=== PATIENT | male | born 1990 | race Caucasian/White ===

== ENCOUNTER 2017-03-20 21:02 | Emergency (ER) | END 2017-03-21 14:49 | disposition home or self-care (01) ==

== ENCOUNTER 2017-04-18 11:55 | Emergency (ER) | END 2017-04-18 17:30 | disposition home or self-care (01) ==

== ENCOUNTER 2017-05-01 22:33 | Inpatient (IN) | END 2017-05-05 17:30 | disposition home or self-care (01) | DRG 711 ==

== ENCOUNTER 2017-06-04 16:43 | Emergency (ER) | END 2017-06-04 20:11 | disposition home or self-care (01) ==

== ENCOUNTER 2017-06-18 00:07 | Emergency (ER) | END 2017-06-18 04:32 | disposition home or self-care (01) ==

== ENCOUNTER 2018-05-26 10:06 | Emergency (ER) | payer BC ==
[~2018-05-26] VITALS: Ht 182.9 cm; Wt 87.5 kg
[~2018-05-26 10:06] MED LIST: CEPH250S33 PO; HYDR-3980 PO; HYDR-4011 PO; IBUP-1542 PO; METO10TA92 PO
[2018-05-26 10:40] VITALS: BP 145/80; PULSE 78; RESP 18; Ht 182.9 cm; Wt 87.5 kg
[2018-05-26] MEDS ORDERED: ACETAMINOPHEN 325 MG TAB PO ONE (12:00)
[2018-05-26] MEDS ORDERED: AZIT250T PO (12:50)
[2018-05-26] MEDS ORDERED: IBUP-1542 PO (12:50)
--- NOTE | 2018-05-26 12:53 | ERD ---
ER Documentation Chief Complaint Chief Complaint cold symptoms x 4 days HPI 27-year-old male presents with cough congestion fever for last 4 days. Denies vomiting, abdominal pain, diarrhea, additional complaints. Patient is concerned because he was treated for testicular cancer last year although by history it appears to be stage II. Denies any pulmonary complications. He has follow-up with primary care and hematology oncology for this. ROS All systems reviewed and are negative except as per history of present illness. Medications Home Meds Active Scripts Azithromycin* (Zithromax*) 250 Mg Tablet, 250 MG PO .ZPACK DIRECTED for 5 Day s, #6 TAB TAKE 500 MG (2 TABS) THE FIRST DAY THEN 250 MG (1 TAB) DAYS 2-5 Prov:ELVIS MARROQUIN MD 05/26/18 Ibuprofen* (Motrin*) 600 Mg Tab, 600 MG PO Q6, #15 TAB Prov:ELVIS MARROQUIN MD 05/26/18 Metoclopramide* (Reglan*) 10 Mg Tablet, 10 MG PO Q6 PRN for NAUSEA AND/OR VOMITING, #10 TAB Prov:TAE VARGHESE MD 06/18/17 Hydrocodone/Acetaminophen ([place] 10-325 Tablet) 1 Each Tablet, 1 TAB PO Q6H PRN for PAIN, #20 TAB Prov:ADELA AVILES DO 06/04/17 Cephalexin* (Cephalexin* Susp) 250 Mg/5 Ml Susp.recon, 500 MG PO Q6 for 7 Days, #1 BOTTLE Prov:VANESSA PEREZ MD 05/04/17 Ibuprofen* (Motrin*) 600 Mg Tab, 600 MG PO Q6H PRN for PAIN AND OR ELEVATED TE MP, #30 TAB Prov:JANIE FAIRBANKS NP 03/21/17 Hydrocodone/Acetaminophen ([place] 5-325 Tablet) 1 Each Tablet, 1 TAB PO Q6H PRN for SEVERE PAIN LEVEL 7-10, #20 TAB Prov:JANIE FAIRBANKS NP 03/21/17 Reported Medications [none] Unknown Strength No Conflict Check 03/21/17 Allergies Allergies: Coded Allergies: No Known Allergy (Unverified , 04/18/17) PMhx/Soc History of Surgery: Yes (Testicular resection) Anesthesia Reaction: No Hx Neurological Disorder: No Hx Respiratory Disorders: No Hx Cardiac Disorders: No Hx Psychiatric Problems: No Hx Miscellaneous Medical Probl: Yes (TESTICULAR CA on chemo) Hx Alcohol Use: Yes (occasionally) Hx Substance Use: No Hx Tobacco Use: No FmHx Family History: No diabetes, No coronary disease, No other Physical Exam Vitals Vital Signs Date Temp Pulse Resp B/P (MAP) Pulse Ox O2 O2 Flow FiO2 Time Delivery Rate 05/26/18 37.1 12:06 05/26/18 98.8 78 18 145/80 97 10:40 (101) Physical Exam Const: No acute distress Head: Atraumatic Eyes: Normal Conjunctiva ENT: Normal External Ears, Nose and Mouth. TMs and oropharynx normal. Neck: Full range of motion. No meningismus. Resp: Clear to auscultation bilaterally Cardio: Regular rate and rhythm, no murmurs Abd: Soft, non tender, non distended. Normal bowel sounds Skin: No petechiae or rashes Back: No midline or flank tenderness Ext: No cyanosis, or edema Neur: Awake and alert Psych: Normal Mood and Affect Results 24 hrs Current Medications Medications Dose Sig/Tony Start Time Status Last (Trade) Ordered Route PRN Stop Time Admin Dose Reason Admin 650 mg ONCE ONCE 05/26/18 DC 05/26/18 Acetaminophen PO 12:00 12:06 (Tylenol 05/26/18 12:01 Tab) Procedures/MDM Patient was offered a chest x-ray but declined. Influenza swab negative. She is well-appearing, speaking complete sentences without signs of abdominal pain, hypoxemia, rest distress, signs of pneumonia. May have viral URI. Given productive cough and negative influenza will treat empirically with Zithromax, fever control, further observation at home and return precautions. The patient was stable with no new complaints during the ER course. Clinically, there is no current evidence to suggest meningitis, sepsis, acute abdomen, pneumonia, stroke, acute coronary syndrome, pulmonary embolism, aortic dissection or any other emergent condition appearing to require further evaluation or hospitalization. Patient counseled regarding my diagnostic impression and care plan. Prior to discharge all questions answered. Pt agrees with treatment plan and understands strict return precautions. Pt is instructed to follow up with primary care provider within 24-48 hours. Precautionary instructions provided including instructions to return to the ER if not improving or for any worsening or changing symptoms or concerns. Departure Diagnosis: Primary Impression: Upper respiratory infection URI type: unspecified URI Qualified Codes: J06.9 - Acute upper respiratory infection, unspecified Condition: Stable Patient Instructions: Bronchitis, Antiobiotic Treatment (Adult), Febrile Illness, Uncertain Cause (Adult) Referrals: SHAWNA MA (PCP) Additional Instructions: Influenza swab negative. We will treat for bronchitis. Recheck for persistent fever over 48-72 hours, shortness of breath, vomiting, new worsening symptoms. ELVIS MARROQUIN MD May 26, 2018 12:53
== END 2018-05-26 13:06 | disposition home or self-care (01) ==
LOC: FTE 10:06
DX: J06.9 Acute upper respiratory infection, unspecified (principal); Z85.47 Personal history of malignant neoplasm of testis
CPT/HCPCS: 87400; Z7502; Z7610; 99283

== ENCOUNTER 2018-08-24 09:19 | Emergency (ER) | payer BC ==
[~2018-08-24] VITALS: Ht 182.9 cm; Wt 83.5 kg
[~2018-08-24 09:19] MED LIST changes: +AZIT250T PO
[2018-08-24 09:50] VITALS: BP 135/70; PULSE 77; RESP 16; Ht 182.9 cm; Wt 83.5 kg
[2018-08-24] MEDS ORDERED: FAMOTIDINE 20 MG TAB PO ONE (10:30)
[2018-08-24] MEDS ORDERED: predniSONE 20 MG TAB PO ONE (10:30)
[2018-08-24] MEDS ORDERED: ELIM TOP (10:44)
[2018-08-24] MEDS ORDERED: BEN50 PO (10:44)
[2018-08-24] MEDS ORDERED: PRED20TA PO (10:44)
--- NOTE | 2018-08-24 11:10 | ERD ---
ER Documentation Chief Complaint Chief Complaint ALL-OVER RASH STARTING MONDAY HPI 27-year-old male with history of testicular cancer with chemo finished 1 year ago presents with complaint of rash over his body. He states that he thinks he got bitten by a mosquito and afterwards noticed the rash. States rash located on his arms as well as stomach. States that the rash itches but does not hurt. States that he has been using hydrocortisone cream is provided some relief from the itching. Denies any wheezing, cough, exercise, nausea, vomiting, abdominal pain, fevers. ROS All systems reviewed and are negative except as per history of present illness. Medications Home Meds Active Scripts Permethrin* (Elimite*) 5% Cr, 1 APPLIC TOP ONCE, #1 TUB Apply from neck to toe and leave on for 12 hours. Use if continued symptoms after steroid course. Prov:JACKIE CRAFT 08/24/18 Diphenhydramine Hcl* (Benadryl*) 50 Mg Cap, 50 MG PO Q6H PRN for ITCHING/RASH, #30 CAP Prov:JACKIE CRAFT 08/24/18 Prednisone* (Prednisone*) 20 Mg Tab, 40 MG PO DAILY for 4 Days, TAB Prov:JACKIE CRAFT 08/24/18 Azithromycin* (Zithromax*) 250 Mg Tablet, 250 MG PO .ZPACK DIRECTED for 5 Days, #6 TAB TAKE 500 MG (2 TABS) THE FIRST DAY THEN 250 MG (1 TAB) DAYS 2-5 Prov:ELVIS MARROQUIN MD 05/26/18 Ibuprofen* (Motrin*) 600 Mg Tab, 600 MG PO Q6, #15 TAB Prov:ELVIS MARROQUIN MD 05/26/18 Metoclopramide* (Reglan*) 10 Mg Tablet, 10 MG PO Q6 PRN for NAUSEA AND/OR VOMITING, #10 TAB Prov:TAE VARGHESE MD 06/18/17 Hydrocodone/Acetaminophen ([place] 10-325 Tablet) 1 Each Tablet, 1 TAB PO Q6H PRN for PAIN, #20 TAB Prov:ADELA AVILES DO 06/04/17 Cephalexin* (Cephalexin* Susp) 250 Mg/5 Ml Susp.recon, 500 MG PO Q6 for 7 Days, #1 BOTTLE Prov:VANESSA PEREZ MD 05/04/17 Ibuprofen* (Motrin*) 600 Mg Tab, 600 MG PO Q6H PRN for PAIN AND OR ELEVATED TEMP, #30 TAB Prov:JANIE FAIRBANKS NP 03/21/17 Hydrocodone/Acetaminophen ([place] 5-325 Tablet) 1 Each Tablet, 1 TAB PO Q6H PRN for SEVERE PAIN LEVEL 7-10, #20 TAB Prov:JANIE FAIRBANKS NP 03/21/17 Reported Medications [none] Unknown Strength No Conflict Check 03/21/17 Allergies Allergies: Coded Allergies: No Known Allergy (Unverified , 04/18/17) PMhx/Soc History of Surgery: Yes (Testicular resection) Anesthesia Reaction: No Hx Neurological Disorder: No Hx Respiratory Disorders: No Hx Cardiac Disorders: No Hx Psychiatric Problems: No Hx Miscellaneous Medical Probl: Yes (TESTICULAR CA on chemo) Hx Alcohol Use: Yes (occasionally) Hx Substance Use: No Hx Tobacco Use: No Smoking Status: Never smoker FmHx Family History: No diabetes, No coronary disease, No other Physical Exam Vitals Vital Signs Date Temp Pulse Resp B/P (MAP) Pulse Ox O2 O2 Flow FiO2 Time Delivery Rate 08/24/18 97.9 77 16 135/70 99 09:50 (91) Physical Exam Const: No acute distress Head: Atraumatic Eyes: Normal Conjunctiva ENT: Normal External Ears, Nose and Mouth. Airways patent and clear with no angioedema. Neck: Full range of motion. No meningismus. Resp: Clear to auscultation bilaterally Cardio: Regular rate and rhythm, no murmurs Abd: Soft, non tender, non distended. Normal bowel sounds Skin: Erythematous papules noted over arms and stomach. Back: No midline or flank tenderness Ext: No cyanosis, or edema Neur: Awake and alert Psych: Normal Mood and Affect Results 24 hrs Current Medications Medications Dose Sig/Tony Start Time Status Last (Trade) Ordered Route PRN Stop Time Admin Dose Reason Admin Famotidine 40 mg ONCE ONCE 08/24/18 DC 08/24/18 (Pepcid) PO 10:30 10:12 08/24/18 10:31 Prednisone 60 mg ONCE ONCE 08/24/18 DC 08/24/18 (Prednisone) PO 10:30 10:12 08/24/18 10:31 Procedures/MDM Patient presents consistent with allergic reaction versus possible scabies. Patient was given Rx meds for allergic reaction in the ER and discharged with short course of prednisone. Patient was also advised that if the short course of prednisone does not resolve the symptoms that he should use the permethrin for possible scabies. Low suspicion for Kawasaki disease, scarlet fever, necrotizing fasciitis, sepsis, gangrene, Kel-Taj syndrome, toxic epidural necrolysis, abscess, cellulitis, anaphylaxis, allergic reaction. At this time, patient is stable for discharge and outpatient management. I have instructed the patient to follow-up with his/her primary care physician in 1-2 days. I have discussed with the patient the possibility of needing to see a specialist for further workup and imaging studies if symptoms persist. I have instructed the patient to promptly return to the ER for any new or worsening symptoms including but not limited to increased pain, fever, nausea, vomiting, weakness or LOC. The patient and/or family expressed understanding of and agreement with this plan. All questions were answered. Home care instructions were provided. DISCLAIMER: Inadvertent spelling and grammatical errors are likely due to EHR/dictation software use and do not reflect on the overall quality of patient care. Also, please note that the electronic time recorded on this note does not necessarily reflect the actual time of the patient encounter. Departure Diagnosis: Primary Impression: Rash Condition: Stable Patient Instructions: Scabies, Allergic Reaction, Other (General), Permethrin Topical lotion Referrals: SHAWNA MA (PCP) Additional Instructions: FOLLOW UP WITH YOUR PRIMARY CARE PHYSICIAN TOMORROW.Return to this facility if you are not improving as expected. JACKIE CRAFT Aug 24, 2018 11:10
== END 2018-08-24 10:56 | disposition home or self-care (01) ==
LOC: FTE 09:19
DX: L53.9 Erythematous condition, unspecified (principal); Z85.47 Personal history of malignant neoplasm of testis
CPT/HCPCS: J7512; Z7502; Z7610; 99283

== ENCOUNTER 2018-10-08 06:45 | Day surgery (SDC) | payer BC ==
[2018-10-08] VITALS (12 sets, daily range): BP systolic 110–133; BP diastolic 57–85; PULSE 59–98; RESP 10–25; Ht 185.4 cm; Wt 82.4 kg
[~2018-10-08] VITALS: Ht 185.4 cm; Wt 82.4 kg
[~2018-10-08 06:45] MED LIST changes: +BEN50 PO; +ELIM TOP; +PRED20TA PO
--- NOTE | 2018-10-08 09:31 | PREAC ---
Date/Time of Note Date/Time of Note DATE: 10/08/18 TIME: 09:29 Anesthesia Eval and Record Evaluation Time Pre-Procedure Interview DATE: 10/08/18 TIME: 09:29 Age 27 Sex male NPO: 8 hrs Preoperative diagnosis Septal Deviation Planned procedure Bilateral Laser Turbinoplasty and Septoplasty Past Medical History Past Medical History: Includes Endo: Other (Hx of Testicular Cancer s/p Chemo) Recreational drugs: Marijuana (Eatables) Surgery & Anesthesia Issues No known issue Meds Anticoagulation: No Beta Turner within 24 hr: No Reason Beta Turner not given: Pt. not on B-Turner Discontinued Reported Medications [none] Unknown Strength No Conflict Check 03/21/17 Discontinued Scripts Permethrin* (Elimite*) 5% Cr, 1 APPLIC TOP ONCE, #1 TUB Apply from neck to toe and leave on for 12 hours. Use if continued symptoms after steroid course. Prov:JACKIE CRAFT 08/24/18 Diphenhydramine Hcl* (Benadryl*) 50 Mg Cap, 50 MG PO Q6H PRN for ITCHING/RASH, #30 CAP Prov:JACKIE CRAFT 08/24/18 Prednisone* (Prednisone*) 20 Mg Tab, 40 MG PO DAILY for 4 Days, TAB Prov:JACKIE CRAFT 08/24/18 Azithromycin* (Zithromax*) 250 Mg Tablet, 250 MG PO .ZPACK DIRECTED for 5 Days, #6 TAB TAKE 500 MG (2 TABS) THE FIRST DAY THEN 250 MG (1 TAB) DAYS 2-5 Prov:ELVIS MARROQUIN MD 05/26/18 Ibuprofen* (Motrin*) 600 Mg Tab, 600 MG PO Q6, #15 TAB Prov:ELVIS MARROQUIN MD 05/26/18 Metoclopramide* (Reglan*) 10 Mg Tablet, 10 MG PO Q6 PRN for NAUSEA AND/OR VOMITING, #10 TAB Prov:TAE VARGHESE MD 06/18/17 Hydrocodone/Acetaminophen ([place] 10-325 Tablet) 1 Each Tablet, 1 TAB PO Q6H PRN for PAIN, #20 TAB Prov:ADELA AVILES DO 06/04/17 Cephalexin* (Cephalexin* Susp) 250 Mg/5 Ml Susp.recon, 500 MG PO Q6 for 7 Days, #1 BOTTLE Prov:VANESSA PEREZ MD 05/04/17 Ibuprofen* (Motrin*) 600 Mg Tab, 600 MG PO Q6H PRN for PAIN AND OR ELEVATED TEMP, #30 TAB Prov:JANIE FAIRBANKS NP 03/21/17 Hydrocodone/Acetaminophen ([place] 5-325 Tablet) 1 Each Tablet, 1 TAB PO Q6H PRN for SEVERE PAIN LEVEL 7-10, #20 TAB Prov:JANIE FAIRBANKS NP 03/21/17 Meds reviewed: Yes Allergies Coded Allergies: No Known Allergy (Unverified , 10/08/18) Allergies Reviewed: Yes Labs/Studies Labs Reviewed: Reviewed by anesthesiologist test: N/A Studies: ECG (n/a), CXR (n/a) Pre-procedure Exam Last vitals Vital Signs Date Temp Pulse Resp B/P (MAP) Pulse Ox O2 O2 Flow FiO2 Time Delivery Rate 10/08/18 97.5 59 16 124/85 97 Room Air 07:58 (98) Airway: Adequate mouth opening, Adequate thyromental dist Mallampati: Mallampati II Teeth: Normal Lung: Normal Heart: Normal ASA Physical Status ASA physical status: 2 Emergency: None Planned Anesthetic General/MAC: ETT Planned Pain Management Parenteral pain med Pre-operative Attestations Prior to commencing anesthesia and surgery, the patient was re-evaluated, there was verification of: *The patient's identity *The results of appropriate recent lab work and preoperative vital signs *The above evaluation not changing prior to induction *Anesthetic plan, risk benefits, alternative and complications discussed with patient/family; questions answered; patient/family understands, accepts and wishes to proceed. MILTON BOWER MD Oct 08, 2018 09:31
[2018-10-08] MEDS ORDERED: DIPHENHYDRAMINE 50 MG INJ IV PRN (10:00)
[2018-10-08] MEDS ORDERED: OXYCODONE/ACETAMINOPHEN (5/325) TAB PO PRN (10:00)
[2018-10-08] MEDS ORDERED: FENTAnyl 50 MCG/ML VIAL IV PRN ×2 (10:00)
[2018-10-08] MEDS ORDERED: EPHEDrine 25 MG/5 ML SYG IV PRN (10:00)
[2018-10-08] MEDS ORDERED: HYDROmorphONE 1 MG/5 ML IV SYRINGE IV PRN ×2 (10:00)
[2018-10-08] MEDS ORDERED: METOCLOPRAMIDE 10 MG INJ IV PRN (10:00)
[2018-10-08] MEDS ORDERED: MEPERIDINE 25 MG INJ IV PRN (10:00)
[2018-10-08] MEDS ORDERED: ONDANSETRON 4 MG INJ IV PRN (10:00)
[2018-10-08] MEDS ORDERED: LIDOCAINE 1%/EPI 30 ML INJ ONE (10:39)
[2018-10-08] MEDS ORDERED: COCAINE 4% 4 ML TOP ONE (10:40)
[2018-10-08] MEDS ORDERED: NEOMYC/POLYMYX/BACIT 30 GM OINT ONE (10:41)
--- NOTE | 2018-10-08 10:52 | HPN ---
Date/Time of Note Date/Time of Note DATE: 10/08/18 TIME: 10:52 Interval H&P Admission Note Pt. seen H&P reviewed: No system changes THOMAS COLÓN M.D. Oct 08, 2018 10:52
[2018-10-08] MEDS ORDERED: FENTAnyl 50 MCG/ML VIAL ONE (11:02)
[2018-10-08] MEDS ORDERED: MIDAZOLAM 1 MG/ML 2 ML INJ ONE (11:02)
[2018-10-08] MEDS ORDERED: CEFAZOLIN 1 GM INJ ONE (11:14)
[2018-10-08] MEDS ORDERED: PROPOFOL 20 ML ONE (11:14)
[2018-10-08] MEDS ORDERED: ROCURONIUM 50 MG INJ ONE (11:14)
[2018-10-08] MEDS ORDERED: ONDANSETRON 4 MG INJ ONE (11:15)
[2018-10-08] MEDS ORDERED: METOCLOPRAMIDE 10 MG INJ ONE (11:15)
[2018-10-08] MEDS ORDERED: DEXAMETHASONE 4 MG/ML 5 ML INJ ONE (11:15)
[2018-10-08] MEDS ORDERED: LABETALOL HCL 20MG INJ ONE (11:18)
[2018-10-08] MEDS ORDERED: NEOSTIGMINE 3 MG/3 ML SYRINGE ONE (12:16)
[2018-10-08] MEDS ORDERED: GLYCOPYRROLATE 0.4 MG INJ ONE (12:16)
--- NOTE | 2018-10-08 12:30 | OPR ---
Date/Time of Note Date/Time of Note DATE: 10/08/18 TIME: 12:26 Operative Report Procedure Date: Oct 08, 2018 Preoperative Diagnosis 1. SEPTAL DEVIATION. 2. BILATERAL NASAL TURBINATE HYPERTROPHY. 3. CHRONIC NASAL OBSTRUCTION. Postoperative Diagnosis SAME. Operation/Procedure Performed 1. SEPTOPLASTY. 2. BILATERAL NASAL KTP 532 NM LASER TENDINOPLASTY VIA SMR. Surgeon see signature line Mechanical Meter Tester NONE. Anesthesia Type: general (4% 4CC COCCAINE TOPICAL. 17 CC 1% LIDOCAINE WITH EPI 1:100,000 SOLN.) Estimated Blood Loss: 0 - 10 ml's Transfusion none Specimen SEPTAL CARTILAGE AND BONE. Grafts/Implants none Tubes/Drains NONE. Complications none Pt Condition Post Procedure: stable Disposition: PACU Indications TO IMPROVE BREATHING. Procedure Description SEE DICTATED OPERATIVE REPORT. THOMAS COLÓN M.D. Oct 08, 2018 12:30
--- NOTE | 2018-10-08 12:31 | PDOCDIS ---
Discharge Instructions DIAGNOSIS Discharge Diagnosis 1. SEPTAL DEVIATION. 2. BILATERAL NASAL TURBINATE HYPERTROPHY. 3. CHRONIC NASAL OBSTRUCTION. CONDITION [id number] Patient Condition: [id number] Good HOME CARE INSTRUCTIONS: [id number] Diet Instructions: [id number] Regular ACTIVITY: [id number] Activity Restrictions: [id number] Slowly Increase Activity Rest between Activity Avoid heavy lifting Avoid Heavy Housework FOLLOW UP/APPOINTMENTS Follow-up Plan MY OFFICE IN 10 TO 14 DAYS. SCHOOL/WORK RELEASE May return to School/Work on: Oct 15, 2018 May return to School/Work with: No Restrictions THOMAS COLÓN M.D. Oct 08, 2018 12:31
--- NOTE | 2018-10-08 12:35 | PAC ---
Date/Time of Note Date/Time of Note DATE: 10/08/18 TIME: 12:35 Post-Anesthesia Notes Post-Anesthesia Note Last documented vital signs Vital Signs Date Temp Pulse Resp B/P (MAP) Pulse Ox O2 O2 Flow FiO2 Time Delivery Rate 10/08/18 98.3 59 16 124/85 97 Room Air 12:30 (98) Activity: WNL Respiratory function: WNL Cardiovascular function: WNL Mental status: Baseline Pain reasonably controlled: Yes Hydration appropriate: Yes Nausea/Vomiting absent: Yes MILTON BOWER MD Oct 08, 2018 12:35
--- NOTE | 2018-10-08 13:55 | OPR ---
DATE OF OPERATION: 10/08/2018 SURGEON: Neil Silva MD PREOPERATIVE DIAGNOSES: 1. Septal deviation. 2. Bilateral nasal turbinate tissue hypertrophy. 3. Chronic nasal obstruction. POSTOPERATIVE DIAGNOSES: 1. Septal deviation. 2. Bilateral nasal turbinate tissue hypertrophy. 3. Chronic nasal obstruction. OPERATION PERFORMED: 1. A septoplasty using submucosal resection technique. 2. Bilateral laser KTP 532 nanometer turbinoplasty procedure using submucosal resection technique. ESTIMATED BLOOD LOSS: Less than 30 mL. COMPLICATIONS: None. SPECIMENS SENT TO LAB: Septal cartilage and bone for gross and microscopic evaluation. INDICATIONS: Mr. Dhruv Hernandez is a 27-year-old male who has a history of chronic nasal obstruction , found to have left nasal septal deviation with encroachment upon the left inferior turbinate. The patient has also been found to have enlarged turbinates bilaterally. The patient has been treated wi th multiple nasal topical steroids, which have met with failure. The patient is currently being cons idered for septoplasty procedure with bilateral laser turbinoplasty procedures indicated. Risks, silas efits, and alternatives have been explained thoroughly to the patient. They include infections, blee ding, possible septal perforation as well as possible nasal deformity. He has understood these risks , benefits and alternatives, signed consent after his questions were answered. ANESTHESIA: General anesthesia with orotracheal tube intubation. The patient also had topical cocai ne 4% using 4 mL on cottonoids. The patient also had 17 mL of 1% lidocaine with epinephrine 1:200,00 0 using 25-gauge 1-1/2 needle. The patient was also given IV Ancef before the case was begun. FINDINGS DURING PROCEDURE: Left nasal septal deviation with deflection. The patient was also found to have enlarged turbinates bilaterally. No signs of malignancies, tumors or acute inflammation seen during the procedure. DESCRIPTION OF PROCEDURE: The patient was taken the operating room, placed on the surgical table in supine position, made comfortable by the anesthesiologist. The patient had EKG, saturation monitor a nd blood pressure cuff applied. At this point, the patient was then given an injection through a pre viously started IV in the preinduction area which was infusing well. The patient was successfully or otracheally intubated with orotracheal tube without any complications. Tube was taped to the lower l ip in the right corner of the mouth. At this point, the patient's vital signs were noted to be stable as the patient was draped out in usu al sterile fashion using split sheet and wet towels around the nasal cavity. At this point, all pers onnel in the operating room were asked to place safety goggles on for their protection. The nasal ca vity was then inspected under direct visualization, injected around the septum, floor of the nose as well as the inferior turbinates. Cottonoids soaked in cocaine were then placed in the anterior ethmo id behind the middle turbinate areas. At this point, a KTP 532 nanometer laser was then made ready a t 8 thorne continuous power. The foot pedal was used to activate the laser as a straight hand-held joseph ndpiece with suction attachment was then threaded with a fiber. At this point, the cottonoids were r emoved from the nasal cavity as the left inferior turbinate was brought into direct visualization. A septal spur on the floor of the nose was then seen encroaching upon the left inferior turbinate. Us ing stabbing technique in a posterior direction in a submucosal region, the laser was then activated with foot pedal. The smoke was then evacuated through the evacuator as the inferior turbinate was n oted to shrink in size. The laser was then progressed in a posterior direction to reduce the turbina tara and swing it away from the septal spur in the left side of the nose. At this point, a nasal spec ulum was then used to outfracture the inferior turbinate toward the medial wall and maxillary sinus, giving greater patency of the nasal cavity. The right inferior turbinate was done in a similar fashi on. It too was swollen and reduced in the submucosal space. There was minimal bleeding as a Juan suction was used to remove blood from the nasal cavity. At this point, a hemitransfixion incision w as created on the left side of the nose in the anterior septal margin with a #[address] ainless steel blade. This incision was carried down to the perichondrium as a mucoperichondrial flap was elevated with a Sebastian elevator. Care was taken not to tear the flap as the cartilage was then incised through to the right side. The mucoperichondrial covering on the right side was not violated as a Sebastian elevator was advanced to that side. Elevate mucoperichondrial flap on the right side to skeletonize the cartilage in between. The septal spur and inferior region of the septum was then re moved with Marika forceps between the flaps to bring flap back toward the midline. At this point, there was greater patency on the left side of the nose as the removal of bone between the flaps was accomplished. At this point, the hemitransfixion incision was closed with a 4-0 Vicryl suture in sim ple interrupted fashion to bring it back toward the midline. At this point, the Juan suction was then placed inside the back of the nose, removed ingested tissue products and blood in preparation fo r packing. Bacitracin ointment was then packed inside the nose after which a mustache dressing was a pplied to catch any drainage. This ended the procedure. Sponge counts and instrument counts were co rrect x3. There were no complications during the procedure. Dictated By: NEIL GLASER/SHAY Conf#: [id number] DID#: [id number]
== END 2018-10-08 14:09 | disposition home or self-care (01) ==
LOC: SDS 06:45
PROVIDERS: ATTEND Otolaryngology Otolaryngology/Facial Plastic Surgery
DX: J34.2 Deviated nasal septum (principal); J34.3 Hypertrophy of nasal turbinates
CPT/HCPCS: 30140; 30520; 88300; J0690; J1100; J2175; J2250; J2405; J2710; J2765; J3010; Z7512; Z7610